=== PATIENT | female | born 1975 | race Caucasian/White ===

== ENCOUNTER 2022-09-23 18:10 | Inpatient (IN) | payer MEDICAID ==
[~2022-09-23] VITALS: Ht 162.6 cm; Wt 108.4 kg
[2022-09-23] MEDS ORDERED: SODIUM CHLORIDE 0.9% 1,000 ML IV ONE ×2 (18:45→20:45)
[2022-09-23 19:09] LABS: BG BASE EXCESS -2.2 mmol/L (-2.0-2.0); BG CARBOXYHEMOGLOBIN 0.7 % (0.5-1.5); BG DEOXYHEMOGLOBIN 2.6 % (0.0-5.0); BG FRACTION INSPIRED OXYGEN 21; BG HCO3 ACT 20.4 mmol/L (22.0-26.0); BG METHEMOGLOBIN 0.2 % (0.0-1.5); BG OXYGEN SATURATION 97.4 % (92.0-98.5); BG OXYHEMOGLOBIN 96.5 % (94.0-97.0); BG PH 7.466 (7.350-7.450); BG PO2 96.6 mmHg (75.0-100.0); BG SAMPLE SITE RIGHT RADIAL; BG TOTAL HEMOGLOBIN 12.7 g/dL (12.0-18.0); BG VENT MODE ROOM AIR
[2022-09-23 19:36] LABS: BASOPHILS % 0.4 % (0.0-2.0); EOSINOPHILS % 3.1 % (0.0-5.0); HEMATOCRIT. 36.7 % (36.0-48.0); HEMOGLOBIN. 12.3 g/dL (12.0-16.0); LYMPHOCYTES % 30.4 % (20.0-50.0); MEAN CORPUSCULAR HEMOGLOBIN 27.1 pg (28.0-32.0); MEAN CORPUSCULAR VOLUME 81.2 fL (81.0-99.0); MEAN PLATELET VOLUME 8.5 fl (7.4-10.4); NEUTROPHILS % 60.1 % (40.0-76.0); PLATELET 322 x1000/uL (130-400); RED BLOOD CELL COUNT 4.53 mill/uL (4.2-5.4); RED CELL DISTRIBUTION WIDTH 13.8 % (11.6-14.6)
[2022-09-23 19:44] LABS: CHLORIDE 100 mEq/L (98-107)
[2022-09-23 19:48] LABS: PROTHROMBIN TIME 10.7 sec (9.6-11.0)
[2022-09-23 19:53] LABS: BETA HYDROXYBUTYRATE 0.3 mMol/L (0.0-0.3); ETHANOL BLOOD < 10 mg/dL (-10)
[2022-09-23 19:55] LABS: HCG SCREEN NEGATIVE
[2022-09-23] MEDS ORDERED: INSULIN REGULAR (HUMULIN R) 300UNITS/3ML VIAL SUBCUT NR ×2 (20:45→22:00)
[2022-09-23] MEDS ORDERED: HYDRALAZINE 20MG/ML VIAL IV ONE (21:30)
[2022-09-24 04:00] VITALS: BP_SYST 141; BP_SYST 180; BP_DIAS 77; BP_DIAS 99; PULSE 18; PULSE 98; RESP 18; RESP 22; TEMP 97.8
[2022-09-24] MEDS ORDERED: DEXTROSE 50% WATER 50ML SYRINGE IV PRN (05:00)
[2022-09-24] MEDS ORDERED: LOSA1TAB34 MT (05:01)
[2022-09-24] MEDS ORDERED: ATOR20TA65 MT (05:01)
[2022-09-24] MEDS ORDERED: METF-874 MT (05:01)
[2022-09-24] MEDS ORDERED: DULA0.75 SQ (05:01)
[2022-09-24] MEDS ORDERED: SITA100T11 MT (05:01)
[2022-09-24] MEDS: BLOOD SUGAR DIAGNOSTIC STRIP TEST SCH ×4 (06:41→21:52)
[2022-09-24] MEDS: ACETAMINOPHEN 650MG/20.3ML UDC PO PRN ×2 (06:42→20:14)
[2022-09-24] MEDS ORDERED: INSULIN LISPRO 100 UNITS/ML SUBCUT SCH (07:40)
[2022-09-24 08:00] VITALS: BP 134/68; PULSE 98; RESP 18; TEMP 97.7
[2022-09-24] MEDS: ASPIRIN 81MG EC TABLET PO SCH (09:16)
[2022-09-24 09:18] LABS: BASOPHILS % 0.6 % (0.0-2.0); EOSINOPHILS % 2.8 % (0.0-5.0); HEMATOCRIT. 35.3 % (36.0-48.0); LYMPHOCYTES % 28.8 % (20.0-50.0); MEAN CORPUSCULAR HEMOGLOBIN 27.7 pg (28.0-32.0); MEAN CORPUSCULAR VOLUME 81.3 fL (81.0-99.0); MEAN PLATELET VOLUME 8.4 fl (7.4-10.4); MONOCYTES % 4.2 % (2.0-8.0); NEUTROPHILS % 63.6 % (40.0-76.0); PLATELET 316 x1000/uL (130-400); RED BLOOD CELL COUNT 4.34 mill/uL (4.2-5.4); RED CELL DISTRIBUTION WIDTH 13.6 % (11.6-14.6)
[2022-09-24] MEDS: INSULIN GLARGINE 100 UNITS/ML SUBCUT SCH ×2 (09:18→22:09)
[2022-09-24 10:00] LABS: CHLORIDE 106 mEq/L (98-107)
[2022-09-24 10:10] LABS: HDL CHOLESTEROL 49 mg/dL (40-59); LDL CHOLESTEROL 155 mg/dL (5-100)
[2022-09-24 12:00] VITALS: BP 129/82; PULSE 80; RESP 20; TEMP 96.6
[2022-09-24] MEDS: INSULIN LISPRO 100 UNITS/ML SUBCUT SCH ×4 (12:27→22:08)
[2022-09-24] MEDS: ENOXAPARIN 30MG/0.3ML SYR SUBCUT SCH (12:53)
[2022-09-24 16:00] VITALS: BP 146/74; PULSE 87; RESP 18; TEMP 97.6
[2022-09-24 20:00] VITALS: BP 139/89; PULSE 96; RESP 18; TEMP 97.8
[2022-09-24] MEDS: CLOPIDOGREL 75MG TABLET PO SCH (20:14)
[2022-09-24] MEDS ORDERED: ATORVASTATIN CALCIUM 40MG TABLET PO SCH (21:00)
[2022-09-24] MEDS: ATORVASTATIN CALCIUM 40MG TABLET PO SCH (21:52)
[2022-09-25] VITALS: BP 124/66; PULSE 80; RESP 20; TEMP 97
[2022-09-25 04:00] VITALS: BP 124/79; PULSE 83; RESP 18; TEMP 98
[2022-09-25] MEDS: BLOOD SUGAR DIAGNOSTIC STRIP TEST SCH ×4 (06:37→21:00)
[2022-09-25] MEDS: INSULIN LISPRO 100 UNITS/ML SUBCUT SCH ×7 (06:40→22:10)
[2022-09-25] MEDS: ENOXAPARIN 30MG/0.3ML SYR SUBCUT SCH ×2 (06:41→18:03)
[2022-09-25 08:00] VITALS: BP 100/60; PULSE 74; RESP 18; TEMP 97.9
[2022-09-25] MEDS: ASPIRIN 81MG EC TABLET PO SCH (08:38)
[2022-09-25] MEDS: CLOPIDOGREL 75MG TABLET PO SCH (08:38)
[2022-09-25] MEDS: INSULIN GLARGINE 100 UNITS/ML SUBCUT SCH ×2 (09:26→22:11)
[2022-09-25 12:00] VITALS: BP 117/79; PULSE 81; RESP 18; TEMP 97.1
[2022-09-25 16:00] VITALS: BP 118/68; PULSE 78; RESP 18; TEMP 97.8
[2022-09-25 20:00] VITALS: BP 104/56; PULSE 98; RESP 21; TEMP 97.5
[2022-09-25] MEDS: ATORVASTATIN CALCIUM 40MG TABLET PO SCH (22:09)
[2022-09-26] VITALS: BP 103/52; PULSE 78; RESP 18; TEMP 97.5
[2022-09-26 04:00] VITALS: BP 116/76; PULSE 79; RESP 20; TEMP 97.6
[2022-09-26] MEDS: BLOOD SUGAR DIAGNOSTIC STRIP TEST SCH ×2 (06:41→11:02)
[2022-09-26] MEDS: ENOXAPARIN 30MG/0.3ML SYR SUBCUT SCH (06:41)
[2022-09-26] MEDS: INSULIN LISPRO 100 UNITS/ML SUBCUT SCH ×4 (06:41→12:57)
[2022-09-26 08:00] VITALS: BP 106/70; PULSE 90; RESP 18; TEMP 97.7
[2022-09-26] MEDS: CLOPIDOGREL 75MG TABLET PO SCH (08:10)
[2022-09-26] MEDS: ASPIRIN 81MG EC TABLET PO SCH (08:10)
[2022-09-26] MEDS: INSULIN GLARGINE 100 UNITS/ML SUBCUT SCH (10:00)
[2022-09-26] MEDS ORDERED: LIP40 PO (10:30)
[2022-09-26] MEDS ORDERED: CLOP-31 PO (10:30)
[2022-09-26] MEDS ORDERED: ASPI-1406 PO (10:30)
[2022-09-26] MEDS: ACETAMINOPHEN 650MG/20.3ML UDC PO PRN (11:29)
[2022-09-26 12:00] VITALS: BP 112/74; PULSE 88; RESP 18; TEMP 98
[2022-09-26 12:50] VITALS: BP 127/74; PULSE 81; TEMP 98.7; O2SAT 98
== END 2022-09-26 13:35 | disposition home health service (06) | DRG 45 ==
LOC: ER 20:24 → MICUSO 23:14 → 8WST 09-24 03:25
PROVIDERS: ADMIT Internal Medicine; ATTEND Internal Medicine
DX: I63.9 Cerebral infarction, unspecified (principal); E11.65 Type 2 diabetes mellitus with hyperglycemia; I16.1 Hypertensive emergency; E78.5 Hyperlipidemia, unspecified; E78.00 Pure hypercholesterolemia, unspecified; E66.01 Morbid (severe) obesity due to excess calories; I10 Essential (primary) hypertension; Z68.41 Body mass index [BMI] 40.0-44.9, adult
CPT/HCPCS: 36415; 36600; 70496; 70498; 70551; 71045; 80048; 80053; 80061; 80320; 82010; 82375; 82805; 82962; 83036; 84484; 84703; 85025; 92523; 93005; 93306; 97162; 97166; 99285; J0360; J1650; J1815; G0480

== ENCOUNTER 2022-10-21 14:04 | Emergency (ER) | payer MEDICAID ==
[~2022-10-21] VITALS: Ht 162.6 cm; Wt 105.0 kg
[~2022-10-21 14:04] MED LIST: ASPI-1406 PO; ATOR20TA65 MT; CLOP-31 PO; DULA0.75 SQ; LIP40 PO; LOSA1TAB34 MT; METF-874 MT; SITA100T11 MT
[2022-10-21 14:27] VITALS: BP 188/83; PULSE 79; RESP 18; TEMP 98.5; O2SAT 99
[2022-10-21] MEDS ORDERED: GABA300C MT (14:32)
[2022-10-21] MEDS ORDERED: LOSA1TAB37 MT (14:32)
== END 2022-10-21 15:25 | disposition home or self-care (01) ==
LOC: ER 14:04
DX: I16.0 Hypertensive urgency (principal); M25.511 Pain in right shoulder; E11.9 Type 2 diabetes mellitus without complications; E78.00 Pure hypercholesterolemia, unspecified; Z79.82 Long term (current) use of aspirin; Z79.899 Other long term (current) drug therapy
CPT/HCPCS: 99283

== ENCOUNTER 2024-05-29 07:17 | Emergency (ER) | payer MEDICAID ==
[~2024-05-29] VITALS: Ht 152.4 cm; Wt 100.0 kg
[~2024-05-29 07:17] MED LIST changes: +GABA300C MT; +LOSA1TAB37 MT; +METF-1150 MT; -METF-874 MT
[2024-05-29 07:28] VITALS: BP 176/91; PULSE 94; RESP 16; TEMP 36.9; O2SAT 98
[2024-05-29 08:45] LABS: BASOPHILS % 0.7 % (0.0-2.0); EOSINOPHILS % 3.2 % (0.0-5.0); HEMATOCRIT. 39.3 % (36.0-48.0); HEMOGLOBIN. 12.6 g/dL (12.0-16.0); LYMPHOCYTES % 17.5 % (20.0-50.0); MEAN CORPUSCULAR HEMOGLOBIN 26.7 pg (28.0-32.0); MEAN CORPUSCULAR HGB CONC 32.2 g/dL (31.0-37.0); MEAN PLATELET VOLUME 7.9 fl (7.4-10.4); MONOCYTES % 3.3 % (2.0-8.0); NEUTROPHILS % 75.3 % (40.0-76.0); PLATELET 365 x1000/uL (130-400); RED BLOOD CELL COUNT 4.73 mill/uL (4.2-5.4); RED CELL DISTRIBUTION WIDTH 14.1 % (11.6-14.6); WHITE BLOOD COUNT 11.3 x1000/uL (4.5-11.0)
[2024-05-29 08:52] LABS: CHLORIDE 101 mEq/L (98-107); SODIUM 137 mEq/L (136-145)
[2024-05-29 08:53] LABS: CALCIUM 9.3 mg/dL (8.7-10.4); CARBON DIOXIDE 28 mEq/L (21-32)
[2024-05-29 08:58] LABS: CREATININE 0.6 mg/dL (0.6-1.0); GLUCOSE 151 mg/dL (70-105); UREA NITROGEN BLOOD 19 mg/dL (9-23)
[2024-05-29 09:00] LABS: TROPONIN I HIGH SENSITIVITY 5 ng/L (3.0-34)
[2024-05-29 09:04] LABS: CLARITY URINE CLEAR (CLEAR); COLOR URINE YELLOW (YELLOW); GLUCOSE URINE 3+ (NEGATIVE); KETONES URINE NEGATIVE (NEGATIVE); LEUKOCYTE ESTERASE URINE NEGATIVE (NEGATIVE); NITRITE URINE NEGATIVE (NEGATIVE); OCCULT BLOOD URINE NEGATIVE (NEGATIVE); PROTEIN URINE NEGATIVE (NEGATIVE); UROBILINOGEN URINE 0.2 E.U./dL (0.2-1.0)
[2024-05-29 09:33] LABS: RBC URINE 0-2 /hpf (0-2); WBC URINE NONE SEEN /hpf (0-2)
[2024-05-29 09:34] LABS: BACTERIA URINE FEW; SQUAMOUS EPITHELIAL CELL URINE 1+ /lpf (RARE/1+); YEAST URINE NONE SEEN
[2024-05-29 10:28] LABS: TROPONIN I HIGH SENSITIVITY 5 ng/L (3.0-34)
== END 2024-05-29 12:12 | disposition home or self-care (01) ==
LOC: ER 07:17
DX: R07.89 Other chest pain (principal); E11.9 Type 2 diabetes mellitus without complications; E78.00 Pure hypercholesterolemia, unspecified; I10 Essential (primary) hypertension; Z79.02 Long term (current) use of antithrombotics/antiplatelets; Z79.82 Long term (current) use of aspirin; Z79.84 Long term (current) use of oral hypoglycemic drugs; Z79.899 Other long term (current) drug therapy; Z86.73 Personal history of transient ischemic attack (TIA), and cerebral infarction without residual deficits
CPT/HCPCS: 36415; 71045; 80048; 81003; 83880; 84484; 85025; 93005; 99285